=== PATIENT | male | born 1955 | race Caucasian/White ===

== ENCOUNTER 2019-10-09 05:31 | Day surgery (SDC) | payer OTHER ==
[~2019-10-09] VITALS: Ht 177.8 cm; Wt 91.0 kg
[~2019-10-09 05:31] MED LIST: ALBU8.5H8 INH; MONT10TA11 PO
[2019-10-09 06:14] VITALS: BP 106/76
[2019-10-09] MEDS ORDERED: LACTATED RINGERS 1,000 ML IV SCH (06:19)
[2019-10-09] MEDS ORDERED: FENTANYL PF 100 MCG/2ML ONE (07:28)
[2019-10-09] MEDS ORDERED: MIDAZOLAM 1 MG/ML, 2ML ONE (07:28)
[2019-10-09] MEDS ORDERED: KETAMINE 10 MG/ML, 20ML ONE (07:32)
[2019-10-09] MEDS ORDERED: PHENYLEPHRINE 10 MG/ML ONE (07:37)
[2019-10-09] MEDS ORDERED: PROPOFOL 10 MG/ML, 20ML ONE (07:37)
[2019-10-09] MEDS ORDERED: HYDROmorphone 2 MG/ML, 1ML IVPush PRN (08:00)
[2019-10-09] MEDS ORDERED: hydrALAzine 20 MG/ML, 1ML IV PRN (08:00)
[2019-10-09] MEDS ORDERED: MEPERIDINE/PF 25MG/ML,1ML IVPush PRN (08:00)
[2019-10-09] MEDS ORDERED: FENTANYL PF 100 MCG/2ML IV PRN (08:00)
[2019-10-09] MEDS ORDERED: ALBUTEROL SULFATE 2.5 MG/3 ML NPPB PRN (08:00)
[2019-10-09] MEDS ORDERED: ACETAMINOPHEN 325 MG TABLET PO PRN (08:00)
[2019-10-09] MEDS ORDERED: OXYcodone 5 MG/5 ML ORAL.SOL UDC PO PRN (08:00)
[2019-10-09] MEDS ORDERED: ONDANSETRON 2MG/ML, 2ML IV PRN (08:00)
== END 2019-10-09 09:35 | disposition home or self-care (01) ==
LOC: OUT 05:31
PROVIDERS: ATTEND Internal Medicine
DX: D12.8 Benign neoplasm of rectum (principal); J45.909 Unspecified asthma, uncomplicated; Z87.891 Personal history of nicotine dependence
CPT/HCPCS: 45338; 88305; 93005; J2370; J2704; J7120

== ENCOUNTER 2019-12-24 07:36 | Day surgery (SDC) | payer OTHER ==
[~2019-12-24] VITALS: Ht 177.8 cm; Wt 92.0 kg
[2019-12-24] MEDS ORDERED: LACTATED RINGERS 1,000 ML IV SCH (08:07)
[2019-12-24 08:09] VITALS: BP 107/74
[2019-12-24] MEDS ORDERED: CHLORHEXIDINE 15 ML UDC ONE (08:16)
[2019-12-24] MEDS ORDERED: BUPIVACAINE/PF-EPI 0.5% 1:200K ONE (08:24)
[2019-12-24] MEDS ORDERED: CHLORHEXIDINE 15 ML UDC MM ONE (08:30)
[2019-12-24] MEDS ORDERED: FENTANYL PF 250 MCG/5ML ONE (08:38)
[2019-12-24] MEDS ORDERED: MIDAZOLAM 1 MG/ML, 2ML ONE (08:38)
[2019-12-24] MEDS ORDERED: NEOSTIGMINE 1 MG/ML, 10ML ONE (08:46)
[2019-12-24] MEDS ORDERED: ROCURONIUM 10MG/ML,5ML ONE ×2 (08:46→10:23)
[2019-12-24] MEDS ORDERED: PROPOFOL 10 MG/ML, 20ML ONE (08:46)
[2019-12-24] MEDS ORDERED: CEFOTETAN PMX 2GM/50ML 50 ML ONE (08:47)
[2019-12-24] MEDS ORDERED: ALBUTEROL SULFATE 2.5 MG/3 ML NPPB PRN (09:00)
[2019-12-24] MEDS ORDERED: hydrALAzine 20 MG/ML, 1ML IV PRN (09:00)
[2019-12-24] MEDS ORDERED: LABETALOL 5MG/ML, 20ML IV PRN (09:00)
[2019-12-24] MEDS ORDERED: ONDANSETRON 2MG/ML, 2ML IV PRN (09:00)
[2019-12-24] MEDS ORDERED: OXYcodone 5 MG/5 ML ORAL.SOL UDC PO PRN (09:00)
[2019-12-24] MEDS ORDERED: MORPHINE SULFATE 4 MG/ML, 1ML IVPush PRN (09:00)
[2019-12-24] MEDS ORDERED: FENTANYL PF 100 MCG/2ML IV PRN (09:00)
[2019-12-24] MEDS ORDERED: MEPERIDINE/PF 25MG/ML,1ML IVPush PRN (09:00)
[2019-12-24] MEDS ORDERED: ACETAMINOPHEN 325 MG TABLET PO PRN (09:00)
[2019-12-24] MEDS ORDERED: HYDROmorphone 2 MG/ML, 1ML IVPush PRN (09:00)
[2019-12-24] MEDS ORDERED: SUGAMMADEX 200 MG/2 ML IVPush ONE ×2 (10:23)
[2019-12-24] MEDS ORDERED: ACETAMINOPHEN 650 MG/20.3 ML UDC ONE (10:52)
[2019-12-24] MEDS ORDERED: OXYcodone 5 MG/5 ML ORAL.SOL UDC ONE (10:52)
== END 2019-12-24 13:00 | disposition home or self-care (01) ==
LOC: OUT 07:36
PROVIDERS: ATTEND Surgery
DX: K62.89 Other specified diseases of anus and rectum (principal); D12.8 Benign neoplasm of rectum; J45.909 Unspecified asthma, uncomplicated; Z79.899 Other long term (current) drug therapy; Z87.891 Personal history of nicotine dependence
CPT/HCPCS: 45172; 88305; J2250; J2704; J2710; J3010; J3490; J7120

== ENCOUNTER → 2020-05-08 | Outpatient (CLI) | payer OTHER ==
[~2020-05-08] MED LIST changes: +FEXO1TAB25 PO
== END | disposition home or self-care (01) ==
LOC: STAR 14:14
PROVIDERS: ATTEND Surgery
DX: Z01.818 Encounter for other preprocedural examination (principal); Z20.828 Contact with and (suspected) exposure to other viral communicable diseases
CPT/HCPCS: 36415; 87635; 93005

== ENCOUNTER 2020-05-17 12:00 | Inpatient (IN) | payer OTHER ==
[~2020-05-17] VITALS: Ht 177.8 cm; Wt 94.0 kg
--- NOTE | 2020-05-17 12:09 | NUR ---
PT AMBULATED TO RESTROOM WITH STEADY GAIT.
--- NOTE | 2020-05-17 12:26 | NUR ---
PT C/O URINARY RETENTION SINCE PROCEDURE. BLADDER SCAN SHOWS 550-600MLS. Addendum: 05/17/20 at 1227 by MARI MD FINE.
--- NOTE | 2020-05-17 12:58 | NUR ---
PIV PLACED, 1 SET BLOOD CX DRAWN. LAB COLLECTED 2ND SET BLOOD CX.
[2020-05-17] MEDS ORDERED: SODIUM CHLORIDE 0.9% 1,000ML IVBOLUS PRN (13:00)
[2020-05-17] MEDS ORDERED: LIDOCAINE 2%,20 ML JEL.PF.APP MM ONE (13:03)
[2020-05-17 13:08] LABS: MEAN CORPUSCULAR HEMOGLOBIN 31.9 pg (27.5-34.5); MEAN CORPUSCULAR HGB CONC 33.4 g/dL (33.2-36.2); PLATELET COUNT 241 x10^3/uL (130-400); RED BLOOD COUNT 4.48 x10^6/uL (4.38-5.82); RED CELL DISTRIBUTION WIDTH 13.2 % (9.4-14.8)
[2020-05-17 13:20] LABS: ALANINE AMINOTRANSFERASE 37 U/L (12-78); ALBUMIN 2.9 g/dL (3.4-5.0); ANION GAP 6 mmol/L (5-15); CALCIUM 8.6 mg/dL (8.5-10.1); CHLORIDE 106 mmol/L (98-107); CREATININE 1.04 mg/dL (0.7-1.3)
[2020-05-17 13:21] LABS: BASOPHILS % (AUTO) 0 % (0-1); EOSINOPHILS # (AUTO) 0.14 x10^3/uL (0-0.4); EOSINOPHILS % (AUTO) 1 % (1-7); LYMPHOCYTES # (AUTO) 0.75 x10^3/uL (1-3.4); LYMPHOCYTES % (AUTO) 5 % (22-44); MD SCAN; MONOCYTES # (AUTO) 1.07 x10^3/uL (0.2-0.8); MONOCYTES % (AUTO) 8 % (2-9); NEUTROPHILS # (AUTO) 12.29 x10^3/uL (1.8-6.8); NEUTROPHILS % (AUTO) 86 % (42-75)
[2020-05-17 13:23] LABS: ALKALINE PHOSPHATASE 71 U/L (45-117); BILIRUBIN,TOTAL 0.6 mg/dL (0.2-1.0); TOTAL PROTEIN 7.6 g/dL (6.4-8.2)
--- NOTE | 2020-05-17 13:24 | NUR ---
INDWELLING CEDEÑO 16G INSERTED WITH STERILE TECHNIQUE. DRAINING CLEAR YELLOW URINE. UA COLLECTED AND TAKEN TO LAB.
[2020-05-17 13:29] LABS: MICROSCOPIC AUTO
[2020-05-17] MEDS ORDERED: PIPERACILLIN/TAZO/PMX 3.375GM 50 ML ONE (13:29)
--- NOTE | 2020-05-17 13:42 | NUR ---
MED REQUESTED FROM PHARMACY.
[2020-05-17] MEDS ORDERED: OMNIPAQUE 350 MG/ML, 100ML BOTTLE ONE (14:04)
[2020-05-17] MEDS: PIPERACILLIN/TAZO/PMX 4.5GM 100 ML IV SCH ×3 (14:17→21:42)
--- NOTE | 2020-05-17 14:18 | NUR ---
RECEIVED MEDS FROM PHARMACY. IV ABX STARTED PER NOV. PT RESTING COMFORTABLY ON RNEWMAN. KATINA.
--- NOTE | 2020-05-17 14:19 | NUR ---
[facility] PAGED @[phone]
[2020-05-17] MEDS ORDERED: SODIUM CHLORIDE 0.9% 1,000ML IV ONE (14:30)
[2020-05-17] MEDS ORDERED: CLINDAMYCIN PMX 900MG/50ML 50 ML IV ONE (14:30)
--- NOTE | 2020-05-17 14:31 | NUR ---
[facility] CALLED AGAIN @[phone]
--- NOTE | 2020-05-17 14:38 | NUR ---
[facility] CALLED BACK @[phone]
[2020-05-17] MEDS ORDERED: CLINDAMYCIN PMX 900MG/50ML 50 ML ONE (14:52)
[2020-05-17] MEDS ORDERED: SODIUM CHLORIDE 0.9%, 500ML IVBOLUS ONE (15:00)
--- NOTE | 2020-05-17 15:47 | NUR ---
REPORT GIVEN TO BRAND DESIGNER.
[2020-05-17] MEDS ORDERED: VANCOMYCIN PER PHARMACY MC PRN ×2 (16:00→21:30)
[2020-05-17] MEDS ORDERED: VANCOMYCIN 2,300 MG in SODIUM CHLORIDE 0.9% 500 ML IV ONE (16:00)
[2020-05-17] MEDS ORDERED: FENTANYL PF 250 MCG/5ML ONE (16:05)
[2020-05-17] MEDS ORDERED: MIDAZOLAM 1 MG/ML, 2ML ONE (16:18)
[2020-05-17] MEDS ORDERED: LABETALOL 5MG/ML, 20ML IV PRN (16:30)
[2020-05-17] MEDS ORDERED: PROMETHAZINE 25 MG/ML, 1ML IVPush PRN (16:30)
[2020-05-17] MEDS ORDERED: MEPERIDINE/PF 25MG/0.5ML IVPush PRN (16:30)
[2020-05-17] MEDS ORDERED: HALOPERIDOL 5 MG/ML IV PRN (16:30)
[2020-05-17] MEDS ORDERED: OXYcodone 5 MG/5 ML ORAL.SOL UDC PO PRN (16:30)
[2020-05-17] MEDS ORDERED: FENTANYL PF 100 MCG/2ML IV PRN (16:30)
[2020-05-17] MEDS ORDERED: hydrALAzine 20 MG/ML, 1ML IV PRN (16:30)
[2020-05-17] MEDS ORDERED: HYDROmorphone 1 MG/ML, 1ML INJ IVPush PRN (16:30)
[2020-05-17] MEDS ORDERED: DIPHENHYDRAMINE 50 MG/ML, 1ML IVPush PRN (16:30)
[2020-05-17] MEDS ORDERED: BUPIVACAINE/EPI 0.5% 1:200K ONE (17:19)
[2020-05-17] MEDS ORDERED: BUPIVACAINE/EPI 0.5% 1:200K IM ONE (17:30)
[2020-05-17] MEDS ORDERED: ROCURONIUM 10MG/ML,5ML ONE (17:36)
[2020-05-17] MEDS ORDERED: SUCCINYLCHOLINE 20 MG/ML, 10ML ONE (17:36)
[2020-05-17] MEDS ORDERED: NEOSTIGMINE 1 MG/ML, 10ML ONE (17:36)
[2020-05-17] MEDS ORDERED: DEXAMETHASONE 4 MG/ML, 1ML ONE (17:36)
[2020-05-17] MEDS ORDERED: ONDANSETRON 2MG/ML, 2ML ONE (17:36)
[2020-05-17] MEDS ORDERED: GLYCOPYRROLATE 0.2MG/1ML, 5ML ONE (17:36)
[2020-05-17] MEDS ORDERED: CEFAZOLIN 1,000 MG ONE (17:36)
[2020-05-17] MEDS ORDERED: PROPOFOL 10 MG/ML, 20ML ONE (17:36)
[2020-05-17] MEDS ORDERED: MEPERIDINE/PF 25MG/ML,1ML ONE (17:39)
[2020-05-17] MEDS ORDERED: OXYcodone 5 MG/5 ML ORAL.SOL UDC ONE (18:02)
[2020-05-17] MEDS ORDERED: FENTANYL PF 100 MCG/2ML ONE (18:03)
[2020-05-17 18:49] VITALS: BP 88/58
[2020-05-17] MEDS ORDERED: PIPERACILLIN/TAZO/PMX 3.375GM 50 ML IV SCH (20:30)
[2020-05-17] MEDS ORDERED: ALBUTEROL HFA 90 MCG/SPRAY INH PRN (20:30)
[2020-05-17] MEDS ORDERED: VANCOMYCIN PMX 1GM/200ML 200 ML IV SCH (20:30)
[2020-05-17] MEDS: GABAPENTIN 300 MG CAPSULE PO SCH (21:42)
[2020-05-17] MEDS: POTASSIUM CHLORIDE 20 MEQ in D5%-0.45% NACL 1,000 ML IV SCH (21:42)
[2020-05-17] MEDS: ACETAMINOPHEN 500 MG TABLET PO SCH (21:43)
[2020-05-17] MEDS ORDERED: PHARMACOKINETIC CONSULTATION MC ONE (22:00)
[2020-05-17] MEDS ORDERED: PHARMACOKINETIC MONITORING MC PRN (22:00)
[2020-05-17] MEDS ORDERED: ONDANSETRON 2MG/ML, 2ML IV PRN (22:00)
[2020-05-18 00:56] VITALS: BP 100/59
[2020-05-18] MEDS: ACETAMINOPHEN 500 MG TABLET PO SCH ×4 (03:15→21:56)
[2020-05-18] MEDS: PIPERACILLIN/TAZO/PMX 4.5GM 100 ML IV SCH ×4 (03:15→21:56)
[2020-05-18 04:51] LABS: ALBUMIN 2.1 g/dL (3.4-5.0); ANION GAP 2 mmol/L (5-15); CALCIUM 7.7 mg/dL (8.5-10.1); CHLORIDE 111 mmol/L (98-107); CREATININE 0.86 mg/dL (0.7-1.3)
[2020-05-18 04:54] LABS: CREATININE 0.87 mg/dL (0.7-1.3)
[2020-05-18 05:01] LABS: MEAN CORPUSCULAR HEMOGLOBIN 31.6 pg (27.5-34.5); MEAN CORPUSCULAR HGB CONC 32.7 g/dL (33.2-36.2); MEAN PLATELET VOLUME 6.9 fL (7.4-10.4); PLATELET COUNT 178 x10^3/uL (130-400); RED BLOOD COUNT 3.75 x10^6/uL (4.38-5.82); RED CELL DISTRIBUTION WIDTH 13.4 % (9.4-14.8)
[2020-05-18 06:00] LABS: BASOPHILS % (AUTO) 0 % (0-1); EOSINOPHILS # (AUTO) 0.01 x10^3/uL (0-0.4); EOSINOPHILS % (AUTO) 0 % (1-7); LYMPHOCYTES # (AUTO) 0.57 x10^3/uL (1-3.4); LYMPHOCYTES % (AUTO) 5 % (22-44); MD SCAN; MONOCYTES % (AUTO) 9 % (2-9); NEUTROPHILS # (AUTO) 9.07 x10^3/uL (1.8-6.8); NEUTROPHILS % (AUTO) 86 % (42-75)
[2020-05-18 06:45] VITALS: BP 93/60
[2020-05-18] MEDS: GABAPENTIN 300 MG CAPSULE PO SCH ×3 (08:36→21:56)
[2020-05-18] MEDS: POTASSIUM CHLORIDE 20 MEQ in D5%-0.45% NACL 1,000 ML IV SCH ×2 (08:44→21:56)
[2020-05-18 10:53] VITALS: BP 96/66
[2020-05-18] MEDS ORDERED: VANCOMYCIN 1,800 MG in SODIUM CHLORIDE 0.9% 250 ML IV SCH ×2 (12:00→12:30)
[2020-05-18 15:28] VITALS: BP 105/68
[2020-05-18] MEDS: PNEUMOC 13-VALENT VACC, 0.5 ML IM-VACC ONE ×2 (15:30→16:23)
[2020-05-18 19:49] VITALS: BP 102/64
[2020-05-19] MEDS ORDERED: VANCOMYCIN 1,800 MG in SODIUM CHLORIDE 0.9% 250 ML IV SCH
[2020-05-19 01:25] VITALS: BP 99/64
[2020-05-19] MEDS: PIPERACILLIN/TAZO/PMX 4.5GM 100 ML IV SCH ×4 (05:08→21:28)
[2020-05-19] MEDS: ACETAMINOPHEN 500 MG TABLET PO SCH ×4 (05:09→22:34)
[2020-05-19] MEDS: POTASSIUM CHLORIDE 20 MEQ in D5%-0.45% NACL 1,000 ML IV SCH ×4 (06:06→21:28)
[2020-05-19 07:34] VITALS: BP 105/72
[2020-05-19 08:46] LABS: MEAN CORPUSCULAR HEMOGLOBIN 31.9 pg (27.5-34.5); MEAN CORPUSCULAR HGB CONC 33.3 g/dL (33.2-36.2); MEAN PLATELET VOLUME 6.4 fL (7.4-10.4); PLATELET COUNT 234 x10^3/uL (130-400); RED CELL DISTRIBUTION WIDTH 13.5 % (9.4-14.8)
[2020-05-19 08:48] LABS: ALBUMIN 2.1 g/dL (3.4-5.0); CALCIUM 7.9 mg/dL (8.5-10.1); CREATININE 0.93 mg/dL (0.7-1.3)
[2020-05-19 08:56] LABS: ANION GAP 6 mmol/L (5-15); CHLORIDE 111 mmol/L (98-107)
[2020-05-19 09:23] LABS: BASOPHILS # (AUTO) 0.02 x10^3/uL (0-0.1); BASOPHILS % (AUTO) 0 % (0-1); EOSINOPHILS # (AUTO) 0.36 x10^3/uL (0-0.4); EOSINOPHILS % (AUTO) 5 % (1-7); LYMPHOCYTES # (AUTO) 0.94 x10^3/uL (1-3.4); LYMPHOCYTES % (AUTO) 13 % (22-44); MD SCAN; MONOCYTES # (AUTO) 0.76 x10^3/uL (0.2-0.8); MONOCYTES % (AUTO) 11 % (2-9); NEUTROPHILS # (AUTO) 5.13 x10^3/uL (1.8-6.8); NEUTROPHILS % (AUTO) 71 % (42-75)
[2020-05-19] MEDS: GABAPENTIN 300 MG CAPSULE PO SCH ×3 (09:23→22:03)
[2020-05-19] MEDS: HYDROmorphone 2 MG/ML, 1ML IVPush PRN ×4 (09:23→22:03)
[2020-05-19 12:26] VITALS: BP 124/67
[2020-05-19 20:14] VITALS: BP 101/60
[2020-05-20 00:59] VITALS: BP 93/62
[2020-05-20] MEDS: ACETAMINOPHEN 500 MG TABLET PO SCH ×4 (03:55→22:11)
[2020-05-20] MEDS: PIPERACILLIN/TAZO/PMX 4.5GM 100 ML IV SCH ×4 (03:55→22:11)
[2020-05-20] MEDS: HYDROmorphone 2 MG/ML, 1ML IVPush PRN ×5 (04:18→22:28)
[2020-05-20 05:07] LABS: BASOPHILS # (AUTO) 0.05 x10^3/uL (0-0.1); BASOPHILS % (AUTO) 1 % (0-1); EOSINOPHILS # (AUTO) 0.57 x10^3/uL (0-0.4); EOSINOPHILS % (AUTO) 7 % (1-7); LYMPHOCYTES # (AUTO) 1.01 x10^3/uL (1-3.4); LYMPHOCYTES % (AUTO) 13 % (22-44); MD NO; MEAN CORPUSCULAR HEMOGLOBIN 31.9 pg (27.5-34.5); MEAN CORPUSCULAR HGB CONC 33.5 g/dL (33.2-36.2); MEAN PLATELET VOLUME 6.6 fL (7.4-10.4); MONOCYTES # (AUTO) 1.03 x10^3/uL (0.2-0.8); MONOCYTES % (AUTO) 13 % (2-9); NEUTROPHILS # (AUTO) 5.09 x10^3/uL (1.8-6.8); NEUTROPHILS % (AUTO) 66 % (42-75); PLATELET COUNT 256 x10^3/uL (130-400); RED BLOOD COUNT 3.69 x10^6/uL (4.38-5.82); RED CELL DISTRIBUTION WIDTH 13.2 % (9.4-14.8)
[2020-05-20 05:17] LABS: ALBUMIN 2.1 g/dL (3.4-5.0); ANION GAP 6 mmol/L (5-15); CALCIUM 7.9 mg/dL (8.5-10.1); CHLORIDE 110 mmol/L (98-107); CREATININE 0.94 mg/dL (0.7-1.3)
[2020-05-20 07:17] VITALS: BP 96/64
[2020-05-20] MEDS: GABAPENTIN 300 MG CAPSULE PO SCH ×3 (08:41→22:11)
[2020-05-20] MEDS: POTASSIUM CHLORIDE 20 MEQ in D5%-0.45% NACL 1,000 ML IV SCH ×2 (11:09→22:11)
[2020-05-20 12:52] VITALS: BP 119/77
[2020-05-20 19:32] VITALS: BP 107/72
[2020-05-21 00:30] VITALS: BP 94/57
[2020-05-21] MEDS: HYDROmorphone 2 MG/ML, 1ML IVPush PRN ×4 (04:50→16:20)
[2020-05-21] MEDS: PIPERACILLIN/TAZO/PMX 4.5GM 100 ML IV SCH ×4 (05:34→22:32)
[2020-05-21] MEDS: ACETAMINOPHEN 500 MG TABLET PO SCH ×4 (05:34→22:32)
[2020-05-21 07:23] VITALS: BP 127/74
[2020-05-21] MEDS: GABAPENTIN 300 MG CAPSULE PO SCH ×3 (09:38→22:32)
[2020-05-21] MEDS: POTASSIUM CHLORIDE 20 MEQ in D5%-0.45% NACL 1,000 ML IV SCH (12:36)
[2020-05-21 13:42] VITALS: BP 110/73
[2020-05-21] MEDS ORDERED: BUPIVACAINE/PF 0.5% ONE (17:37)
[2020-05-21] MEDS ORDERED: FENTANYL PF 250 MCG/5ML ONE (18:20)
[2020-05-21] MEDS ORDERED: CEFOTETAN PMX 2GM/50ML 50 ML IVPB ONE (18:23)
[2020-05-21] MEDS ORDERED: BUPIVACAINE/PF 0.5% INFIL ONE (18:51)
[2020-05-21] MEDS ORDERED: KETOROLAC 30 MG/1 ML IV PRN (19:00)
[2020-05-21] MEDS ORDERED: OXYcodone 5 MG/5 ML ORAL.SOL UDC PO PRN (19:00)
[2020-05-21] MEDS ORDERED: MEPERIDINE/PF 25MG/0.5ML IVPush PRN (19:00)
[2020-05-21] MEDS ORDERED: ACETAMINOPHEN 325 MG TABLET PO PRN (19:00)
[2020-05-21] MEDS ORDERED: HYDROmorphone 2 MG/ML, 1ML IVPush PRN (19:00)
[2020-05-21] MEDS ORDERED: DIAZEPAM 5 MG/ML, 2ML IVPush PRN (19:00)
[2020-05-21] MEDS ORDERED: PROMETHAZINE 25 MG/ML, 1ML IV PRN (19:00)
[2020-05-21] MEDS ORDERED: ALBUTEROL SULFATE 2.5 MG/3 ML NPPB PRN (19:00)
[2020-05-21] MEDS ORDERED: hydrALAzine 20 MG/ML, 1ML IV PRN (19:00)
[2020-05-21] MEDS ORDERED: LABETALOL 5MG/ML, 20ML IV PRN (19:00)
[2020-05-21] MEDS ORDERED: DEXAMETHASONE 4 MG/ML, 1ML ONE (19:39)
[2020-05-21] MEDS ORDERED: GLYCOPYRROLATE 0.2MG/1ML, 5ML ONE (19:39)
[2020-05-21] MEDS ORDERED: ROCURONIUM 10MG/ML,5ML ONE (19:39)
[2020-05-21] MEDS ORDERED: ONDANSETRON 2MG/ML, 2ML ONE (19:39)
[2020-05-21] MEDS ORDERED: CEFAZOLIN 1,000 MG ONE (19:39)
[2020-05-21] MEDS ORDERED: PROPOFOL 10 MG/ML, 20ML ONE (19:39)
[2020-05-21] MEDS ORDERED: SUCCINYLCHOLINE 20 MG/ML, 10ML ONE (19:39)
[2020-05-21] MEDS ORDERED: NEOSTIGMINE 1 MG/ML, 10ML ONE (19:39)
[2020-05-21] MEDS ORDERED: FENTANYL PF 100 MCG/2ML ONE (20:01)
[2020-05-21] MEDS ORDERED: OXYcodone 5 MG/5 ML ORAL.SOL UDC ONE (20:01)
[2020-05-21] MEDS: FENTANYL PF 100 MCG/2ML IV PRN ×2 (20:05→20:12)
[2020-05-21] MEDS ORDERED: PROMETHAZINE 25 MG/ML, 1ML ONE (20:14)
[2020-05-21] MEDS ORDERED: HYDROmorphone 1 MG/ML, 1ML INJ ONE (20:34)
[2020-05-21 21:30] VITALS: BP 103/66
[2020-05-22 00:15] VITALS: BP 102/65
[2020-05-22 03:53] VITALS: BP 90/60
[2020-05-22] MEDS: PIPERACILLIN/TAZO/PMX 4.5GM 100 ML IV SCH (04:17)
[2020-05-22] MEDS: ACETAMINOPHEN 500 MG TABLET PO SCH ×4 (04:17→23:13)
[2020-05-22] MEDS: POTASSIUM CHLORIDE 20 MEQ in D5%-0.45% NACL 1,000 ML IV SCH ×2 (05:47→15:30)
[2020-05-22 07:44] VITALS: BP 102/66
[2020-05-22] MEDS: GABAPENTIN 300 MG CAPSULE PO SCH ×3 (07:58→21:18)
[2020-05-22] MEDS: HYDROmorphone 2 MG/ML, 1ML IVPush PRN ×5 (07:59→23:13)
[2020-05-22] MEDS ORDERED: DAPTOMYCIN IVPB SCH (10:30)
[2020-05-22] MEDS ORDERED: SODIUM CHLORIDE 0.9% IVPB SCH (10:30)
[2020-05-22] MEDS: ERTAPENEM 1 GM in SODIUM CHLORIDE 0.9% 50 ML IV SCH (10:35)
[2020-05-22] MEDS: DAPTOMYCIN 550 MG in SODIUM CHLORIDE 0.9% 100 ML IVPB SCH (11:22)
[2020-05-22 13:40] VITALS: BP 90/59
[2020-05-22 20:30] VITALS: BP 92/56
[2020-05-22] MEDS: OXYcodone IR 5MG TABLET PO PRN (21:19)
[2020-05-23] MEDS: POTASSIUM CHLORIDE 20 MEQ in D5%-0.45% NACL 1,000 ML IV SCH ×3 (01:04→22:40)
[2020-05-23] MEDS: HYDROmorphone 2 MG/ML, 1ML IVPush PRN ×5 (01:05→20:38)
[2020-05-23 01:16] VITALS: BP 92/58
[2020-05-23] MEDS: ACETAMINOPHEN 500 MG TABLET PO SCH ×4 (05:32→22:40)
[2020-05-23 07:55] VITALS: BP 92/60
[2020-05-23] MEDS: GABAPENTIN 300 MG CAPSULE PO SCH ×3 (09:27→20:36)
[2020-05-23] MEDS: ERTAPENEM 1 GM in SODIUM CHLORIDE 0.9% 50 ML IV SCH (09:31)
[2020-05-23] MEDS: DAPTOMYCIN 550 MG in SODIUM CHLORIDE 0.9% 100 ML IVPB SCH (11:25)
[2020-05-23 12:25] VITALS: BP 117/77
[2020-05-23 15:42] VITALS: BP 107/71
[2020-05-23 18:52] VITALS: BP 116/80
[2020-05-24 00:13] VITALS: BP 110/71
[2020-05-24] MEDS: HYDROmorphone 2 MG/ML, 1ML IVPush PRN (03:33)
[2020-05-24] MEDS: ACETAMINOPHEN 500 MG TABLET PO SCH ×4 (05:21→22:56)
[2020-05-24 08:00] VITALS: BP 121/82
[2020-05-24] MEDS: GABAPENTIN 300 MG CAPSULE PO SCH ×3 (08:19→20:32)
[2020-05-24] MEDS: POTASSIUM CHLORIDE 20 MEQ in D5%-0.45% NACL 1,000 ML IV SCH ×2 (08:40→15:17)
[2020-05-24] MEDS ORDERED: OXYcodone/APAP 5/325MG TABLET PO PRN (09:00)
[2020-05-24] MEDS: ERTAPENEM 1 GM in SODIUM CHLORIDE 0.9% 50 ML IV SCH (09:43)
[2020-05-24] MEDS: DAPTOMYCIN 550 MG in SODIUM CHLORIDE 0.9% 100 ML IVPB SCH (10:52)
[2020-05-24] MEDS: OXYcodone IR 5MG TABLET PO PRN ×4 (10:53→22:56)
[2020-05-24 14:00] VITALS: BP 116/72
[2020-05-24 20:07] VITALS: BP 110/75
[2020-05-25 01:30] VITALS: BP 122/83
[2020-05-25] MEDS: POTASSIUM CHLORIDE 20 MEQ in D5%-0.45% NACL 1,000 ML IV SCH ×2 (04:40→11:40)
[2020-05-25] MEDS: OXYcodone IR 5MG TABLET PO PRN ×2 (05:31→22:12)
[2020-05-25] MEDS: ACETAMINOPHEN 500 MG TABLET PO SCH ×4 (05:31→22:12)
[2020-05-25 05:33] LABS: ALANINE AMINOTRANSFERASE 45 U/L (12-78); ALBUMIN 2.3 g/dL (3.4-5.0); ANION GAP 5 mmol/L (5-15); CALCIUM 8.7 mg/dL (8.5-10.1); CHLORIDE 109 mmol/L (98-107); CREATININE 0.92 mg/dL (0.7-1.3)
[2020-05-25 05:42] LABS: BASOPHILS # (AUTO) 0.03 x10^3/uL (0-0.1); BASOPHILS % (AUTO) 0 % (0-1); EOSINOPHILS # (AUTO) 0.45 x10^3/uL (0-0.4); EOSINOPHILS % (AUTO) 5 % (1-7); LYMPHOCYTES # (AUTO) 1.57 x10^3/uL (1-3.4); LYMPHOCYTES % (AUTO) 19 % (22-44); MD NO; MEAN CORPUSCULAR HEMOGLOBIN 31.7 pg (27.5-34.5); MEAN CORPUSCULAR HGB CONC 33.4 g/dL (33.2-36.2); MEAN PLATELET VOLUME 5.9 fL (7.4-10.4); MONOCYTES # (AUTO) 0.83 x10^3/uL (0.2-0.8); MONOCYTES % (AUTO) 10 % (2-9); NEUTROPHILS # (AUTO) 5.58 x10^3/uL (1.8-6.8); NEUTROPHILS % (AUTO) 66 % (42-75); PLATELET COUNT 468 x10^3/uL (130-400); RED CELL DISTRIBUTION WIDTH 13.3 % (9.4-14.8)
[2020-05-25 05:43] LABS: ALKALINE PHOSPHATASE 66 U/L (45-117); BILIRUBIN,TOTAL 0.3 mg/dL (0.2-1.0); CREATINE KINASE, TOTAL 75 U/L (39-308); TOTAL PROTEIN 6.3 g/dL (6.4-8.2)
[2020-05-25 05:51] LABS: HCT (SEDRATE) 38.9 % (39.2-51.8)
[2020-05-25] MEDS: GABAPENTIN 300 MG CAPSULE PO SCH ×3 (07:40→22:07)
[2020-05-25 08:35] VITALS: BP 114/76
[2020-05-25] MEDS: ERTAPENEM 1 GM in SODIUM CHLORIDE 0.9% 50 ML IV SCH (09:28)
[2020-05-25] MEDS: AMOXICILLIN/CLAV 875-125MG TABLET PO SCH ×2 (10:25→17:30)
[2020-05-25] MEDS: SULFAMETH./TRIMETHOPRIM DS 800MG/160MG TABLET PO SCH ×2 (10:25→17:30)
[2020-05-25 14:20] VITALS: BP 108/72
[2020-05-25 21:22] VITALS: BP 114/77
[2020-05-26] MEDS: POTASSIUM CHLORIDE 20 MEQ in D5%-0.45% NACL 1,000 ML IV SCH ×3 (01:04→21:16)
[2020-05-26 01:49] VITALS: BP 118/75
[2020-05-26] MEDS: AMOXICILLIN/CLAV 875-125MG TABLET PO SCH ×3 (02:49→17:48)
[2020-05-26] MEDS: SULFAMETH./TRIMETHOPRIM DS 800MG/160MG TABLET PO SCH ×3 (02:49→17:48)
[2020-05-26] MEDS: OXYcodone IR 5MG TABLET PO PRN ×3 (02:49→22:17)
[2020-05-26] MEDS: ACETAMINOPHEN 500 MG TABLET PO SCH ×3 (06:30→22:17)
[2020-05-26] MEDS: GABAPENTIN 300 MG CAPSULE PO SCH ×3 (08:09→22:17)
[2020-05-26 08:53] VITALS: BP 102/67
[2020-05-26 13:40] VITALS: BP 95/64
[2020-05-26 19:41] VITALS: BP 91/55
[2020-05-27] MEDS: AMOXICILLIN/CLAV 875-125MG TABLET PO SCH ×2 (01:55→10:22)
[2020-05-27] MEDS: SULFAMETH./TRIMETHOPRIM DS 800MG/160MG TABLET PO SCH ×2 (01:55→10:22)
[2020-05-27] MEDS: OXYcodone IR 5MG TABLET PO PRN ×2 (01:55→06:19)
[2020-05-27 02:10] VITALS: BP 89/55
[2020-05-27] MEDS: ACETAMINOPHEN 500 MG TABLET PO SCH ×2 (06:19→13:26)
[2020-05-27] MEDS: POTASSIUM CHLORIDE 20 MEQ in D5%-0.45% NACL 1,000 ML IV SCH (07:16)
[2020-05-27 07:21] VITALS: BP 94/59
[2020-05-27] MEDS: GABAPENTIN 300 MG CAPSULE PO SCH (08:19)
[2020-05-27 14:30] VITALS: BP 100/62
== END 2020-05-27 14:55 | disposition home or self-care (01) | DRG 331 ==
LOC: ED 14:39 → EDIP 14:55 → 3N 19:12 → 4NE 05-18 10:46 → DCLOUNGE 05-27 14:39
PROVIDERS: ADMIT Surgery; ATTEND Surgery
PROC: 0D9P00Z Drainage of Rectum with Drainage Device, Open Approach (ICD-10-PCS; 2020-05-17)
PROC: 0T9B70Z Drainage of Bladder with Drainage Device, Via Natural or Artificial Opening (ICD-10-PCS; 2020-05-17)
PROC: 0D1N4Z4 Bypass Sigmoid Colon to Cutaneous, Percutaneous Endoscopic Approach (ICD-10-PCS; principal; 2020-05-21 18:00)
DX: K91.89 Other postprocedural complications and disorders of digestive system (principal); K61.39 Other ischiorectal abscess; Y83.8 Other surgical procedures as the cause of abnormal reaction of the patient, or of later complication, without mention of misadventure at the time of the procedure; J44.9 Chronic obstructive pulmonary disease, unspecified; D72.829 Elevated white blood cell count, unspecified; D12.8 Benign neoplasm of rectum; Z20.828 Contact with and (suspected) exposure to other viral communicable diseases; Z87.891 Personal history of nicotine dependence; Y92.9 Unspecified place or not applicable
CPT/HCPCS: 36415; 51702; 96365; 99285; S0020; 72193; 80048; 80053; 81001; 82040; 82550; 82565; 83605; 84520; 85025; 85651; 86140; 87040; 87070; 87075; 87077; 87176; 87186; 87205; 87635; 93005; G0378; J0690; J0878; J1100; J1170; J1335; J2175; J2250; J2405; J2543; J2550; J2704; J2710; J3010; J3370; J3480; Q9967; G0009; J0330; J3490; J7030; J7040; J7050

== ENCOUNTER 2020-09-16 08:05 | Day surgery (SDC) | payer MEDICARE, OTHER ==
[~2020-09-16] VITALS: Ht 177.8 cm; Wt 93.5 kg
[~2020-09-16 08:05] MED LIST changes: +BUPIVACAINE/EPI 0.5% 1:200K ONE; -MONT10TA11 PO; +MONT10TA17 PO
[2020-09-16] MEDS ORDERED: CHLORHEXIDINE 15 ML UDC ONE (08:52)
[2020-09-16 08:54] VITALS: BP 111/76
[2020-09-16] MEDS ORDERED: LACTATED RINGERS 1,000 ML IV SCH (09:00)
[2020-09-16] MEDS ORDERED: CHLORHEXIDINE 15 ML UDC MM ONE (09:00)
[2020-09-16] MEDS ORDERED: MIDAZOLAM 1 MG/ML, 2ML ONE (09:15)
[2020-09-16] MEDS ORDERED: FENTANYL PF 250 MCG/5ML ONE (09:16)
[2020-09-16] MEDS ORDERED: DEXAMETHASONE 4 MG/ML, 5ML ONE (09:17)
[2020-09-16] MEDS ORDERED: CEFOTETAN 1 GM ONE (09:28)
[2020-09-16] MEDS ORDERED: ROCURONIUM 10 MG/ML,10ML ONE (09:28)
[2020-09-16] MEDS ORDERED: BUPIVACAINE LIPOSOME/PF 10ML INFIL ONE (09:47)
[2020-09-16] MEDS ORDERED: PROPOFOL 10 MG/ML, 20ML ONE (09:50)
[2020-09-16] MEDS ORDERED: SUCCINYLCHOLINE 20 MG/ML, 10ML ONE (09:50)
[2020-09-16] MEDS ORDERED: ONDANSETRON 2MG/ML, 2ML ONE (09:50)
[2020-09-16] MEDS ORDERED: OXYcodone 5 MG/5 ML ORAL.SOL UDC PO PRN (10:00)
[2020-09-16] MEDS ORDERED: ACETAMINOPHEN 325 MG TABLET PO PRN (10:00)
[2020-09-16] MEDS ORDERED: FENTANYL PF 100 MCG/2ML IV PRN (10:00)
[2020-09-16] MEDS ORDERED: ONDANSETRON 2MG/ML, 2ML IVPush PRN (10:00)
[2020-09-16] MEDS ORDERED: PROMETHAZINE 12.5 MG SUPP PR PRN (10:00)
[2020-09-16] MEDS ORDERED: MEPERIDINE/PF 25MG/0.5ML IVPush PRN (10:00)
[2020-09-16] MEDS ORDERED: DIPHENHYDRAMINE 50 MG/ML, 1ML IVPush PRN (10:00)
[2020-09-16] MEDS ORDERED: MIDAZOLAM 1 MG/ML, 2ML IV PRN (10:00)
[2020-09-16] MEDS ORDERED: PROMETHAZINE 25 MG/ML, 1ML IVPush PRN (10:00)
[2020-09-16] MEDS ORDERED: LABETALOL 5MG/ML, 20ML IV PRN (10:00)
[2020-09-16] MEDS ORDERED: ALBUTEROL SULFATE 2.5 MG/3 ML NPPB PRN (10:00)
[2020-09-16] MEDS ORDERED: HYDROmorphone 1 MG/ML, 1ML INJ IVPush PRN (10:00)
[2020-09-16] MEDS ORDERED: DIAZEPAM 5 MG/ML, 2ML IVPush PRN (10:00)
[2020-09-16] MEDS ORDERED: EPHEDRINE 50 MG/ML, 1ML IVPush PRN (10:00)
[2020-09-16] MEDS ORDERED: hydrALAzine 20 MG/ML, 1ML IV PRN (10:00)
[2020-09-16] MEDS ORDERED: OXYC1TAB14 PO (10:06)
== END 2020-09-16 12:05 | disposition home or self-care (01) ==
LOC: OUT 08:05
PROVIDERS: ATTEND Surgery
DX: K62.89 Other specified diseases of anus and rectum (principal); J44.9 Chronic obstructive pulmonary disease, unspecified; Z20.822 Contact with and (suspected) exposure to COVID-19; Z79.899 Other long term (current) drug therapy; Z91.018 Allergy to other foods; Z93.3 Colostomy status
CPT/HCPCS: 46606; 88305; 93005; J0330; J1100; J2250; J2405; J2704; J3010; J7120; U0003